=== PATIENT | female | born 1975 | race Caucasian/White ===

== ENCOUNTER → 2020-10-27 | Outpatient (CLI) | payer MEDICARE, OTHER | LOC: LAB 09:44 | DX: E87.5 Hyperkalemia (principal) | CPT/HCPCS: 36415; 84132 ==

== ENCOUNTER 2021-02-13 20:50 | Emergency (ER) | payer MEDICARE, OTHER ==
[2021-02-13] MEDS ORDERED: CLARITIN10 MG PO (22:11)
[2021-02-13] MEDS ORDERED: PEPCID40 MG PO (22:11)
== END 2021-02-13 22:27 | disposition home or self-care (01) ==
LOC: ER1 20:50
DX: T23.501A Corrosion of first degree of right hand, unspecified site, initial encounter (principal); T23.502A Corrosion of first degree of left hand, unspecified site, initial encounter; T32.0 Corrosions involving less than 10% of body surface; R21 Rash and other nonspecific skin eruption
CPT/HCPCS: 99283

== ENCOUNTER → 2021-04-30 | Outpatient (CLI) | payer MEDICARE, OTHER ==
[~2021-04-30] MED LIST: CLARITIN10 MG PO; PEPCID40 MG PO
== END ==
LOC: EXRD 12:45
DX: E04.9 Nontoxic goiter, unspecified (principal)
CPT/HCPCS: 76536

== ENCOUNTER → 2022-01-29 | Outpatient (CLI) | payer MEDICARE, OTHER | LOC: HEART 5 10:31 | DX: R07.9 Chest pain, unspecified (principal) ==